=== PATIENT | female | born 1970 | race Asian ===

== ENCOUNTER → 2017-11-04 | Outpatient (CLI) | payer OTHER | END | disposition home or self-care (01) | LOC: CFH 13:45 | PROVIDERS: ATTEND Internal Medicine | DX: Z12.31 Encounter for screening mammogram for malignant neoplasm of breast (principal); Z80.3 Family history of malignant neoplasm of breast | CPT/HCPCS: 77063; 77067 ==

== ENCOUNTER → 2018-06-09 | Outpatient (CLI) | payer OTHER | END | disposition home or self-care (01) | LOC: CFH 11:06 | PROVIDERS: ATTEND Specialist | DX: Z13.820 Encounter for screening for osteoporosis (principal); M89.9 Disorder of bone, unspecified; N80.9 Endometriosis, unspecified | CPT/HCPCS: 77080 ==

== ENCOUNTER → 2020-01-11 | Outpatient (CLI) | payer BC | END | disposition home or self-care (01) | LOC: CFH 15:46 | PROVIDERS: ATTEND Obstetrics & Gynecology | DX: Z12.31 Encounter for screening mammogram for malignant neoplasm of breast (principal) | CPT/HCPCS: 77063; 77067 ==